=== PATIENT | female | born 1965 | race Caucasian/White ===

== ENCOUNTER 2018-03-11 19:05 | Emergency (ER) | payer SELFPAY ==
[2018-03-11] MEDS ORDERED: Lorazepam 2 MG/ML VIAL ONE (19:17)
[2018-03-11] MEDS ORDERED: Fentanyl 100 MCG/2 ML VIAL ONE (19:17)
[2018-03-11] MEDS ORDERED: Ketorolac Tromethamine 30 MG/ML VIAL ONE (19:17)
== END 2018-03-11 20:50 | disposition home or self-care (01) ==
LOC: ERS 19:05
DX: B02.29 Other postherpetic nervous system involvement (principal); I10 Essential (primary) hypertension; F41.9 Anxiety disorder, unspecified
CPT/HCPCS: 96374; 96375; J1885; J2060; J3010